=== PATIENT | male | born 1950 | race Caucasian/White ===

== ENCOUNTER 2019-03-02 07:57 | Emergency (ER) | payer SELFPAY ==
[2019-03-02 09:04] LABS: #Neutrophils 7.5 thou/uL (1.40-6.50); %Basophils 0.2 % (0.0-1.0); %Eosinophils 0.4 % (0.0-10.0); %Lymphocytes 10.2 % (21.0-51.0); %Monocytes 10.3 % (0.0-10.0); %Neutrophils 78.9 % (42.0-75.0); Hemoglobin 13.1 g/dL (14.0-18.0); Mean Corpuscular HGB CONC 33.1 g/dL (32.0-36.0); Mean Corpuscular Hemoglobin 31.4 pg (27.0-31.0); Mean Platelet Volume 7.4 fL (7.4-10.4); Platelet Count 167 thou/uL (130-400); RBC Distribution Width 12.9 % (11.5-14.5); Red Blood Cell (RBC) Count 4.18 mill/uL (4.70-6.10); White Blood Cell (WBC) Count 9.5 thou/uL (4.8-10.8)
--- NOTE | 2019-03-02 09:15 | RAD ---
FOUR VIEWS RIGHT KNEE: HISTORY: Cellulitis. Pain and swelling. FINDINGS: No joint effusion. Mild degenerative change of the patellofemoral compartment and lateral compartmen t. Moderate degenerative change of the medial compartment with loss of joint space height and osteop hyte formation. No destructive changes of the osseous structures. No fractures or malalignment. No significant soft tissue swelling. IMPRESSION: 1. No radiographic evidence of soft tissue swelling. 2. Tricompartmental degenerative change as described above. No joint effusion. POS: OFF
[2019-03-02 09:31] LABS: ALT (SGPT) 25 U/L (8-55); AST (SGOT) 20 U/L (5-34); Albumin 4.1 g/dL (3.4-4.8); Alkaline Phosphatase 58 U/L (40-150); Anion Gap 11 mmol/L (10-20); BUN (Urea Nitrogen) 11 mg/dL (8.4-25.7); Bilirubin, Total 0.6 mg/dL (0.2-1.2); Calc. Creatinine Clearance 0 mL/min (70-130); Calcium 9.4 mg/dL (7.8-10.44); Carbon Dioxide 27 mmol/L (23-31); Chloride 102 mmol/L (98-107); Estimated GFR-MDRD 82; Globulin 2.6 g/dL (2.4-3.5); Glucose 170 mg/dL (80-115); Potassium 3.9 mmol/L (3.5-5.1); Protein, Total 6.7 g/dL (5.8-8.1); Sodium 136 mmol/L (136-145)
[2019-03-02] MEDS ORDERED: Triple Antibiotic Oint 1 GM Packet ONE (10:10)
[2019-03-02] MEDS ORDERED: cefTRIAXone\\ROCEPHIN 2 GM VIAL ONE (10:10)
[2019-03-02] MEDS ORDERED: Sodium Chloride 0.9% 100 ML ONE (10:10)
[2019-03-02] MEDS ORDERED: Vancomycin HCl 1.5 GM in Sodium Chloride 0.9% 250 ML 300 ML IVPB SCH (11:30)
== END 2019-03-02 13:45 | disposition home or self-care (01) ==
LOC: ERS 07:57
DX: L03.115 Cellulitis of right lower limb (principal); E11.9 Type 2 diabetes mellitus without complications; E78.5 Hyperlipidemia, unspecified; I10 Essential (primary) hypertension; Z79.899 Other long term (current) drug therapy
CPT/HCPCS: 36415; 80053; 83605; 85025; 87040; 96365; 96366; 96367; J0696; J3370; J3490; J7050

== ENCOUNTER 2020-10-26 15:58 | Outpatient (CLI) | payer OTHER | END 2020-10-26 15:59 | disposition home or self-care (01) | LOC: BICRAD 15:58 | PROVIDERS: ATTEND Podiatrist | DX: M25.572 Pain in left ankle and joints of left foot (principal) ==

== ENCOUNTER 2022-06-15 08:28 | Emergency (ER) | payer SELFPAY ==
[2022-06-15 09:09] LABS: #Eosinphils 0.1 thou/uL (0.0-0.7); #Lymphocytes 1.3 thou/uL (1.20-3.40); #Monocytes 0.7 thou/uL (0.11-0.59); %Basophils 0.3 % (0.0-1.0); %Eosinophils 1.5 % (0.0-10.0); %Lymphocytes 21.7 % (21.0-51.0); %Monocytes 10.7 % (0.0-10.0); %Neutrophils 65.8 % (42.0-75.0); Hemoglobin 13.8 g/dL (14.0-18.0); Mean Corpuscular HGB CONC 33.6 g/dL (32.0-36.0); Mean Corpuscular Hemoglobin 32.5 pg (27.0-31.0); Mean Corpuscular Volume 96.8 fl (78.0-98.0); Mean Platelet Volume 7.3 fL (7.4-10.4); Platelet Count 216 10x3/uL (130-400); RBC Distribution Width 12.3 % (11.5-14.5); Red Blood Cell (RBC) Count 4.24 mill/uL (4.70-6.10); White Blood Cell (WBC) Count 6.1 10x3/uL (4.8-10.8)
[2022-06-15 09:26] LABS: ALT (SGPT) 24 U/L (8-55); AST (SGOT) 22 U/L (5-34); Albumin 4.5 g/dL (3.4-4.8); Alkaline Phosphatase 54 U/L (40-110); Anion Gap 13 mmol/L (10-20); BUN (Urea Nitrogen) 10 mg/dL (8.4-25.7); Calc. Creatinine Clearance 0 mL/min (70-130); Carbon Dioxide 24 mmol/L (23-31); Chloride 104 mmol/L (98-107); Estimated GFR 95; Glucose 164 mg/dL (80-115); Potassium 4.3 mmol/L (3.5-5.1); Protein, Total 6.5 g/dL (5.8-8.1); Sodium 137 mmol/L (136-145)
[2022-06-15] MEDS ORDERED: traMADol HCl 50 MG TAB ONE (11:16)
[2022-06-15] MEDS ORDERED: Aspirin Chewable 81 MG TAB ONE ×2 (11:17→11:19)
[2022-06-15] MEDS ORDERED: Iopamidol-370 76% 500 ML 1 ML ONE (11:37)
== END 2022-06-15 11:46 | disposition home or self-care (01) ==
LOC: ERS 08:28
DX: M79.661 Pain in right lower leg (principal); I51.7 Cardiomegaly; E11.9 Type 2 diabetes mellitus without complications; E78.00 Pure hypercholesterolemia, unspecified; I10 Essential (primary) hypertension
CPT/HCPCS: 36415; 71045; 71275; 80053; 83880; 84484; 85025; 93005; Q9967

== ENCOUNTER 2023-03-30 11:55 | Inpatient (IN) | payer SELFPAY ==
[2023-03-30 13:10] LABS: #Monocytes 0.7 thou/uL (0.11-0.59); #Neutrophils 5.3 thou/uL (1.40-6.50); %Basophils 0.3 % (0.0-1.0); %Eosinophils 0.5 % (0.0-10.0); %Lymphocytes 20.2 % (21.0-51.0); %Monocytes 9.7 % (0.0-10.0); %Neutrophils 68.9 % (42.0-75.0); Hematocrit 41.3 % (42.0-52.0); Hemoglobin 13.6 g/dL (14.0-18.0); Mean Corpuscular HGB CONC 32.9 g/dL (32.0-36.0); Mean Corpuscular Hemoglobin 31.6 pg (27.0-31.0); Mean Corpuscular Volume 95.8 fl (78.0-98.0); Mean Platelet Volume 9.5 fL (7.4-10.4); Platelet Count 222 10x3/uL (130-400); RBC Distribution Width 13.2 % (11.5-14.5); Red Blood Cell (RBC) Count 4.31 mill/uL (4.70-6.10); White Blood Cell (WBC) Count 7.6 10x3/uL (4.8-10.8)
[2023-03-30] MEDS ORDERED: dilTIAZem 25 MG/5 ML VIAL ONE (13:22)
[2023-03-30 13:37] LABS: Troponin I Less than 0.010 ng/mL (< 0.028)
[2023-03-30 13:38] LABS: ALT (SGPT) 18 U/L (8-55); AST (SGOT) 14 U/L (5-34); Albumin 4.6 g/dL (3.4-4.8); Alkaline Phosphatase 51 U/L (40-110); Anion Gap 14 mmol/L (10-20); BUN (Urea Nitrogen) 9 mg/dL (8.4-25.7); Bilirubin, Total 0.6 mg/dL (0.2-1.2); Calc. Creatinine Clearance 0 mL/min (70-130); Calcium 9.8 mg/dL (7.8-10.44); Carbon Dioxide 23 mmol/L (23-31); Chloride 105 mmol/L (98-107); Estimated GFR 95; Globulin 1.9 g/dL (2.4-3.5); Glucose 134 mg/dL (80-115); Potassium 3.8 mmol/L (3.5-5.1); Protein, Total 6.5 g/dL (5.8-8.1); Sodium 138 mmol/L (136-145)
[2023-03-30] MEDS ORDERED: dilTIAZem 125 MG/25 ML SDV ONE (13:58)
[2023-03-30] MEDS ORDERED: Acetaminophen 325 MG TAB PO PRN (14:32)
[2023-03-30] MEDS ORDERED: Dextrose 5% in Water 1,000 ML IV PRN (14:32)
[2023-03-30] MEDS ORDERED: Glucagon 1 MG/ML KIT IM PRN (14:32)
[2023-03-30] MEDS ORDERED: Insulin Regular 300 UNITS/3 ML VIAL SC PRN (14:32)
[2023-03-30] MEDS ORDERED: Ondansetron ODT 4 MG TAB PO PRN (14:32)
[2023-03-30] MEDS ORDERED: Dextrose 50% Abboject 50 ML SYRINGE SLOW IVP PRN (14:32)
[2023-03-30] MEDS ORDERED: dilTIAZem 125 MG in Sodium Chloride 0.9% 100 ML IVPB SCH (14:45)
[2023-03-30 15:51] LABS: Magnesium 1.8 mg/dL (1.6-2.6)
[2023-03-30 17:15] VITALS: BMI 33.5
[2023-03-30] MEDS: metFORMIN 500 MG TAB PO SCH (17:32)
[2023-03-30 18:43] LABS: Troponin I Less than 0.010 ng/mL (< 0.028)
[2023-03-30] MEDS: Atorvastatin Calcium 20 MG TAB PO SCH (20:43)
[2023-03-30] MEDS: Famotidine 20 MG TAB PO SCH (20:43)
[2023-03-30] MEDS: Melatonin 3 MG TAB PO PRN (20:43)
[2023-03-30 21:22] LABS: Troponin I 0.011 ng/mL (< 0.028)
[2023-03-30] MEDS: dilTIAZem 125 MG, Admixture Fee 1 EACH in Sodium Chloride 0.9% 100 ML IVPB SCH (23:24)
[2023-03-31] MEDS: Enoxaparin 120 MG/0.8 ML SYRINGE SC SCH ×2 (05:21→17:49)
[2023-03-31] MEDS: metFORMIN 500 MG TAB PO SCH ×2 (07:56→17:49)
[2023-03-31] MEDS: Famotidine 20 MG TAB PO SCH ×2 (07:56→20:10)
[2023-03-31] MEDS ORDERED: Furosemide 40 MG/4 ML VIAL ONE (09:03)
[2023-03-31] MEDS ORDERED: Furosemide 20 MG/2 ML VIAL SLOW IVP SCH ×2 (09:15→09:30)
[2023-03-31 10:17] LABS: Troponin I Less than 0.010 ng/mL (< 0.028)
[2023-03-31] MEDS ORDERED: Digoxin 0.5 MG/2 ML AMP SLOW IVP SCH (11:30)
[2023-03-31] MEDS: Atorvastatin Calcium 20 MG TAB PO SCH (20:10)
[2023-03-31] MEDS: Melatonin 3 MG TAB PO PRN (20:10)
[2023-04-01 04:14] LABS: #Eosinphils 0.1 thou/uL (0.0-0.7); #Monocytes 0.8 thou/uL (0.11-0.59); #Neutrophils 5.2 thou/uL (1.40-6.50); %Basophils 0.5 % (0.0-1.0); %Eosinophils 1.1 % (0.0-10.0); %Lymphocytes 17.2 % (21.0-51.0); %Monocytes 10.4 % (0.0-10.0); %Neutrophils 70.5 % (42.0-75.0); Hematocrit 42.1 % (42.0-52.0); Hemoglobin 13.8 g/dL (14.0-18.0); Mean Corpuscular HGB CONC 32.8 g/dL (32.0-36.0); Mean Corpuscular Hemoglobin 31.5 pg (27.0-31.0); Mean Corpuscular Volume 96.1 fl (78.0-98.0); Mean Platelet Volume 10.1 fL (7.4-10.4); Platelet Count 253 10x3/uL (130-400); RBC Distribution Width 13.2 % (11.5-14.5); Red Blood Cell (RBC) Count 4.38 mill/uL (4.70-6.10); White Blood Cell (WBC) Count 7.4 10x3/uL (4.8-10.8)
[2023-04-01 04:37] LABS: Anion Gap 16 mmol/L (10-20); BUN (Urea Nitrogen) 12 mg/dL (8.4-25.7); Calc. Creatinine Clearance 111 mL/min (70-130); Calcium 9.6 mg/dL (7.8-10.44); Carbon Dioxide 27 mmol/L (23-31); Chloride 101 mmol/L (98-107); Estimated GFR 88; Glucose 135 mg/dL (80-115); Potassium 3.8 mmol/L (3.5-5.1); Sodium 140 mmol/L (136-145)
[2023-04-01] MEDS: Enoxaparin 120 MG/0.8 ML SYRINGE SC SCH ×2 (05:33→17:28)
[2023-04-01] MEDS: dilTIAZem 125 MG, Admixture Fee 1 EACH in Sodium Chloride 0.9% 100 ML IVPB SCH ×2 (05:34→14:42)
[2023-04-01] MEDS: metFORMIN 500 MG TAB PO SCH ×2 (10:23→17:28)
[2023-04-01] MEDS: Famotidine 20 MG TAB PO SCH ×2 (10:23→20:52)
[2023-04-01] MEDS: Melatonin 3 MG TAB PO PRN (20:52)
[2023-04-01] MEDS ORDERED: Atorvastatin Calcium 20 MG TAB PO SCH (21:00)
[2023-04-02] MEDS: dilTIAZem 125 MG, Admixture Fee 1 EACH in Sodium Chloride 0.9% 100 ML IVPB SCH ×2 (00:32→09:01)
[2023-04-02 03:48] LABS: #Eosinphils 0.1 thou/uL (0.0-0.7); #Monocytes 0.9 thou/uL (0.11-0.59); #Neutrophils 5.2 thou/uL (1.40-6.50); %Basophils 0.5 % (0.0-1.0); %Eosinophils 1.2 % (0.0-10.0); %Lymphocytes 19.4 % (21.0-51.0); %Monocytes 11.4 % (0.0-10.0); %Neutrophils 67.2 % (42.0-75.0); Hematocrit 40.8 % (42.0-52.0); Hemoglobin 13.1 g/dL (14.0-18.0); Mean Corpuscular HGB CONC 32.1 g/dL (32.0-36.0); Mean Corpuscular Hemoglobin 31.5 pg (27.0-31.0); Mean Corpuscular Volume 98.1 fl (78.0-98.0); Mean Platelet Volume 10.1 fL (7.4-10.4); Platelet Count 183 10x3/uL (130-400); RBC Distribution Width 13.3 % (11.5-14.5); Red Blood Cell (RBC) Count 4.16 mill/uL (4.70-6.10); White Blood Cell (WBC) Count 7.8 10x3/uL (4.8-10.8)
[2023-04-02 04:12] LABS: Anion Gap 16 mmol/L (10-20); BUN (Urea Nitrogen) 12 mg/dL (8.4-25.7); Calc. Creatinine Clearance 119 mL/min (70-130); Calcium 9.1 mg/dL (7.8-10.44); Carbon Dioxide 22 mmol/L (23-31); Chloride 105 mmol/L (98-107); Estimated GFR 93; Glucose 115 mg/dL (80-115); Potassium 3.6 mmol/L (3.5-5.1); Sodium 139 mmol/L (136-145)
[2023-04-02] MEDS ORDERED: FLU VACC QS2023(65UP)/MF59C/PF 60 MCG/0.5 ML SYRINGE IM ONE (09:00)
[2023-04-02] MEDS: Famotidine 20 MG TAB PO SCH (09:01)
[2023-04-02] MEDS: metFORMIN 500 MG TAB PO SCH ×2 (09:01→18:31)
[2023-04-02] MEDS ORDERED: Heparin 10,000 UNITS/ 10 ML VIAL ONE (13:26)
[2023-04-02] MEDS ORDERED: Isoproterenol 0.2 MG/1 ML AMP ONE (15:24)
[2023-04-02] MEDS ORDERED: fentaNYL PF 100 MCG/2 ML SYRINGE ONE (15:26)
[2023-04-02] MEDS ORDERED: PROPOFOL 200 MG/20 ML VIAL ONE (15:37)
[2023-04-02] MEDS ORDERED: Ondansetron PF 4 MG/2 ML Vial ONE ×2 (15:37→16:59)
[2023-04-02] MEDS ORDERED: Dexamethasone 20 MG/5 ML VIAL ONE (15:37)
[2023-04-02] MEDS ORDERED: PHENYLEPHRINE-NS 100 MCG/ML 10 ML SYRINGE ONE (15:37)
[2023-04-02] MEDS ORDERED: DOPamine 400 MG/D5W 250 ML 250 ML ONE (15:53)
[2023-04-02] MEDS ORDERED: PROPOFOL 20 ML ONE (16:01)
[2023-04-02] MEDS ORDERED: Phenylephrine 10 MG/ML VIAL ONE (16:26)
[2023-04-02] MEDS ORDERED: Promethazine HCl 25 MG/ML VIAL IM PRN (17:21)
[2023-04-02] MEDS ORDERED: Ondansetron HCl/PF 4 MG/2 ML Vial IVP PRN (17:21)
[2023-04-02] MEDS ORDERED: fentaNYL 50 mcg/mL 1 mL Vial ONE (17:27)
[2023-04-02 20:45] VITALS: BP 125/82; TEMP 98.4
== END 2023-04-02 21:45 | disposition home or self-care (01) | DRG 274 ==
LOC: ERS 11:55 → SUATTDRO 11:55 → 2NO 14:22
PROVIDERS: ADMIT Family Medicine; ATTEND Physician Assistant
PROC: 02583ZZ Destruction of Conduction Mechanism, Percutaneous Approach (ICD-10-PCS; principal; 2023-04-02)
PROC: B24BZZ4 Ultrasonography of Heart with Aorta, Transesophageal (ICD-10-PCS; 2023-04-02)
PROC: 4A023FZ Measurement of Cardiac Rhythm, Percutaneous Approach (ICD-10-PCS; 2023-04-02)
PROC: 4A0234Z Measurement of Cardiac Electrical Activity, Percutaneous Approach (ICD-10-PCS; 2023-04-02)
PROC: 02K83ZZ Map Conduction Mechanism, Percutaneous Approach (ICD-10-PCS; 2023-04-02)
DX: I48.4 Atypical atrial flutter (principal); E11.9 Type 2 diabetes mellitus without complications; F10.90 Alcohol use, unspecified, uncomplicated; I11.9 Hypertensive heart disease without heart failure; G47.33 Obstructive sleep apnea (adult) (pediatric); Z79.82 Long term (current) use of aspirin; Z79.899 Other long term (current) drug therapy; Z98.890 Other specified postprocedural states; E78.00 Pure hypercholesterolemia, unspecified; Z87.01 Personal history of pneumonia (recurrent); Z79.84 Long term (current) use of oral hypoglycemic drugs
CPT/HCPCS: 36415; 36416; 71045; 80048; 80053; 83735; 83880; 84443; 84484; 85025; 85379; 93005; 93010; 93306; 93312; 93613; 93621; 93653; 96365; 96366; 96372; 96376; 97139; C1730; C1732; C1760; C1894; J1100; J1160; J1265; J1644; J1650; J1940; J2370; J2405; J2704; J3010; J3490

== ENCOUNTER 2023-06-06 05:15 | Inpatient (IN) | payer SELFPAY ==
[2023-06-06] MEDS ORDERED: dilTIAZem 125 MG/25 ML SDV ONE (05:24)
[2023-06-06 05:46] LABS: #Eosinphils 0.1 thou/uL (0.0-0.7); #Monocytes 0.9 thou/uL (0.11-0.59); #Neutrophils 4.3 thou/uL (1.40-6.50); %Basophils 0.6 % (0.0-1.0); %Eosinophils 1.8 % (0.0-10.0); %Lymphocytes 20.8 % (21.0-51.0); %Neutrophils 62.8 % (42.0-75.0); Hematocrit 40.1 % (42.0-52.0); Hemoglobin 13.3 g/dL (14.0-18.0); Mean Corpuscular HGB CONC 33.2 g/dL (32.0-36.0); Mean Corpuscular Hemoglobin 31.8 pg (27.0-31.0); Mean Corpuscular Volume 95.9 fl (78.0-98.0); Mean Platelet Volume 9.7 fL (7.4-10.4); Platelet Count 228 10x3/uL (130-400); RBC Distribution Width 13.9 % (11.5-14.5); Red Blood Cell (RBC) Count 4.18 mill/uL (4.70-6.10); White Blood Cell (WBC) Count 6.8 10x3/uL (4.8-10.8)
[2023-06-06 05:59] LABS: PTT 28.4 sec (22.9-36.1); Prothrombin Time 13.7 sec (12.0-14.7)
[2023-06-06] MEDS ORDERED: Aspirin Chewable 81 MG TAB ONE (06:01)
[2023-06-06 06:42] LABS: ALT (SGPT) 17 U/L (8-55); AST (SGOT) 20 U/L (5-34); Albumin 4.2 g/dL (3.4-4.8); Alkaline Phosphatase 58 U/L (40-110); Anion Gap 17 mmol/L (10-20); BUN (Urea Nitrogen) 18 mg/dL (8.4-25.7); Bilirubin, Total 0.3 mg/dL (0.2-1.2); Calc. Creatinine Clearance 0 mL/min (70-130); Calcium 8.9 mg/dL (7.8-10.44); Carbon Dioxide 20 mmol/L (23-31); Chloride 107 mmol/L (98-107); Estimated GFR 94; Globulin 2.5 g/dL (2.4-3.5); Glucose 193 mg/dL (80-115); Magnesium 1.8 mg/dL (1.6-2.6); Potassium 4.1 mmol/L (3.5-5.1); Protein, Total 6.7 g/dL (5.8-8.1); Sodium 140 mmol/L (136-145)
[2023-06-06 07:34] LABS: Troponin I Less than 0.010 ng/mL (< 0.028)
[2023-06-06 08:01] LABS: Bacteria/HPF None Seen HPF (None Seen); Bilirubin Negative (Negative); Blood, Urine Trace (Negative); CAUTI Indications for Culture Pelvic or flank pain; Clarity Clear (Clear); Glucose, Urine (Dipstick) Normal (Negative); Ketone, Urine Negative (Negative); Leukocyte Negative Leu/uL (Negative); Nitrite Negative (Negative); Protein, Urine (Dipstick) 100 mg/dL (Neg-Trace); RBC/HPF 0-3 HPF (0-3); Specific Gravity, Urine 1.033 (1.002-1.036); Squamous Epithelial None Seen HPF (0-3); Urine Culture Reflex No No; WBC/HPF 0-3 HPF (0-3)
[2023-06-06] MEDS ORDERED: Dextrose 5% in Water 1,000 ML IV PRN (08:13)
[2023-06-06] MEDS ORDERED: Glucagon 1 MG/ML KIT IM PRN (08:13)
[2023-06-06] MEDS ORDERED: Dextrose 50% Abboject 50 ML SYRINGE SLOW IVP PRN (08:13)
[2023-06-06] MEDS ORDERED: HYDROcodone/Acetaminophen 5/325 mg Tablet PO PRN (08:14)
[2023-06-06] MEDS ORDERED: Acetaminophen 325 MG TAB PO PRN (08:14)
[2023-06-06] MEDS ORDERED: HumaLOG 300 UNITS/3 ML VIAL SC PRN (08:14)
[2023-06-06] MEDS ORDERED: dilTIAZem 125 MG in Sodium Chloride 0.9% 100 ML IVPB SCH (08:30)
[2023-06-06] MEDS ORDERED: dilTIAZem 125 MG, Admixture Fee 1 EACH in Sodium Chloride 0.9% 100 ML IVPB SCH (08:45)
[2023-06-06] MEDS ORDERED: Lisinopril 20 MG TAB PO SCH (09:00)
[2023-06-06] MEDS ORDERED: Apixaban 5 MG TAB PO SCH (09:00)
[2023-06-06] MEDS ORDERED: Amlodipine 10 MG TAB PO SCH (09:00)
[2023-06-06 09:04] LABS: Magnesium 1.8 mg/dL (1.6-2.6)
[2023-06-06 09:29] LABS: Troponin I Less than 0.010 ng/mL (< 0.028)
[2023-06-06 11:08] VITALS: BMI 32.5
[2023-06-06 11:19] VITALS: BP 148/78; TEMP 98.5
[2023-06-06 11:43] LABS: Troponin I 0.016 ng/mL (< 0.028)
[2023-06-06] MEDS ORDERED: dilTIAZem CD 120 MG CAP PO SCH (12:15)
[2023-06-06] MEDS ORDERED: Atorvastatin Calcium 20 MG TAB PO SCH (21:00)
[2023-06-06] MEDS ORDERED: Aspirin 81 mg Enteric Coated Tablet PO SCH (21:00)
[2023-06-07] MEDS ORDERED: dilTIAZem CD 120 MG CAP PO SCH (09:00)
== END 2023-06-06 14:30 | disposition home or self-care (01) | DRG 310 ==
LOC: ERS 05:15 → SUATTDRO 05:15 → 2NO 07:49
PROVIDERS: ADMIT Internal Medicine; ATTEND Internal Medicine
DX: I48.0 Paroxysmal atrial fibrillation (principal); E11.65 Type 2 diabetes mellitus with hyperglycemia; I10 Essential (primary) hypertension; E78.5 Hyperlipidemia, unspecified; Z79.82 Long term (current) use of aspirin; Z98.890 Other specified postprocedural states; Z79.84 Long term (current) use of oral hypoglycemic drugs; Z79.899 Other long term (current) drug therapy
CPT/HCPCS: 36415; 71045; 80053; 81001; 83735; 83880; 84443; 84484; 85025; 85610; 85730; 93005

== ENCOUNTER 2025-02-20 08:33 | Inpatient (IN) | payer MEDICARE ==
[2025-02-20 08:56] LABS: #Basophils 0.04 10x3/uL (0.0-0.2); #Eosinophils 0.05 10x3/uL (0.0-0.7); #Monocytes 0.53 10x3/uL (0.11-0.59); #Neutrophils 4.02 10x3/uL (1.40-6.50); %Basophils 0.7 % (0.0-1.0); %Eosinophils 0.8 % (0.0-10.0); %Lymphocytes 21.3 % (21.0-51.0); %Monocytes 9.0 % (0.0-10.0); %Neutrophils 67.9 % (42.0-75.0); Hematocrit 39.2 % (42.0-52.0); Hemoglobin 12.8 g/dL (14.0-18.0); Mean Corpuscular Hemoglobin 30.4 pg (27.0-31.0); Mean Corpuscular Volume 93.1 fL (78.0-98.0); Platelet Count 208 10x3/uL (130-400); Red Blood Cell (RBC) Count 4.21 mill/uL (4.70-6.10); White Blood Cell (WBC) Count 5.92 10x3/uL (4.8-10.8)
[2025-02-20 09:12] LABS: ALT (SGPT) 18 U/L (Less than 45); AST (SGOT) 18 U/L (11-34); Albumin 4.2 g/dL (3.1-4.5); Alkaline Phosphatase 54 U/L (40-110); Anion Gap 13 mmol/L (10-20); BUN (Urea Nitrogen) 12 mg/dL (8.4-25.7); Bilirubin, Total 0.8 mg/dL (0.3-1.2); CRP, High Sensitivity at Bryan 0.02 mg/dL (< or = 0.5); Calc. Creatinine Clearance 0 mL/min (70-130); Calcium 9.1 mg/dL (7.8-10.44); Carbon Dioxide 24 mmol/L (23-31); Chloride 103 mmol/L (98-107); Globulin 2.1 g/dL (2.4-3.5); Glucose 123 mg/dL (83-110); Lipase 31 U/L (8-78); Magnesium 1.9 mg/dL (1.6-2.6); Potassium 3.8 mmol/L (3.5-5.1); Sodium 136 mmol/L (136-145)
[2025-02-20 09:36] LABS: INR-International Normal Ratio 1.0; Prothrombin Time 13.2 sec (12.0-14.7)
[2025-02-20 09:36] LABS: Bacteria/HPF None Seen HPF (None Seen); CAUTI Indications for Culture Dysuria,urgency,freq; Glucose, Urine (Dipstick) Normal (Negative); Leukocyte Negative Leu/uL (Negative); Protein, Urine (Dipstick) 50 mg/dL (Neg-Trace); RBC/HPF 0-3 HPF (0-3); Specific Gravity, Urine 1.019 (1.002-1.036); WBC/HPF 0-3 HPF (0-3)
[2025-02-20 09:37] LABS: PTT 28.2 sec (22.9-36.1)
[2025-02-20 09:49] LABS: Urine Culture Reflex No No
[2025-02-20] MEDS ORDERED: Ondansetron PF 4 MG/2 ML Vial ONE (10:03)
[2025-02-20] MEDS ORDERED: Aspirin Chewable 81 MG TAB ONE (11:27)
[2025-02-20] MEDS ORDERED: Senokot S 8.6-50 MG TAB PO PRN (11:32)
[2025-02-20] MEDS ORDERED: Melatonin 3 MG TAB PO PRN (11:32)
[2025-02-20] MEDS ORDERED: Glucagon 1 MG/ML KIT IM PRN (11:35)
[2025-02-20] MEDS ORDERED: Dextrose 50% Abboject 50 ML SYRINGE SLOW IVP PRN (11:35)
[2025-02-20] MEDS: Pantoprazole 40 MG DR.TAB PO SCH (17:20)
[2025-02-20] MEDS: dilTIAZem 30 MG TAB PO SCH (17:20)
[2025-02-20] MEDS: Glimepiride 2 MG TAB PO SCH (21:21)
[2025-02-20] MEDS: Aspirin 81 mg Enteric Coated Tablet PO SCH (21:21)
[2025-02-21 04:27] LABS: #Basophils 0.03 10x3/uL (0.0-0.2); #Eosinophils 0.05 10x3/uL (0.0-0.7); #Monocytes 0.63 10x3/uL (0.11-0.59); #Neutrophils 4.03 10x3/uL (1.40-6.50); %Basophils 0.5 % (0.0-1.0); %Eosinophils 0.9 % (0.0-10.0); %Lymphocytes 18.2 % (21.0-51.0); %Monocytes 10.8 % (0.0-10.0); %Neutrophils 69.4 % (42.0-75.0); Hematocrit 34.9 % (42.0-52.0); Hemoglobin 11.4 g/dL (14.0-18.0); Mean Corpuscular Hemoglobin 31.0 pg (27.0-31.0); Mean Corpuscular Volume 94.8 fL (78.0-98.0); Platelet Count 194 10x3/uL (130-400); Red Blood Cell (RBC) Count 3.68 mill/uL (4.70-6.10); White Blood Cell (WBC) Count 5.81 10x3/uL (4.8-10.8)
[2025-02-21 05:01] LABS: Anion Gap 12 mmol/L (10-20); BUN (Urea Nitrogen) 12 mg/dL (8.4-25.7); Calc. Creatinine Clearance 0 mL/min (70-130); Calcium 8.9 mg/dL (7.8-10.44); Carbon Dioxide 26 mmol/L (23-31); Chloride 103 mmol/L (98-107); Glucose 104 mg/dL (83-110); Potassium 3.8 mmol/L (3.5-5.1); Sodium 137 mmol/L (136-145)
[2025-02-21] MEDS ORDERED: Apixaban 5 MG TAB PO SCH (09:00)
[2025-02-21] MEDS ORDERED: Pantoprazole 40 MG DR.TAB PO SCH (09:00)
[2025-02-21] MEDS: Lisinopril 20 MG TAB PO SCH (12:46)
[2025-02-22 05:13] LABS: Anion Gap 12 mmol/L (10-20); BUN (Urea Nitrogen) 11 mg/dL (8.4-25.7); Calc. Creatinine Clearance 88 mL/min (70-130); Calcium 9.0 mg/dL (7.8-10.44); Carbon Dioxide 26 mmol/L (23-31); Chloride 105 mmol/L (98-107); Glucose 89 mg/dL (83-110); Potassium 3.6 mmol/L (3.5-5.1); Sodium 139 mmol/L (136-145)
[2025-02-22 05:51] LABS: #Basophils Less than 0.03 10x3/uL (0.0-0.2); #Eosinophils 0.10 10x3/uL (0.0-0.7); #Monocytes 0.76 10x3/uL (0.11-0.59); #Neutrophils 3.64 10x3/uL (1.40-6.50); %Basophils 0.3 % (0.0-1.0); %Eosinophils 1.7 % (0.0-10.0); %Lymphocytes 22.0 % (21.0-51.0); %Monocytes 13.1 % (0.0-10.0); %Neutrophils 62.7 % (42.0-75.0); Hematocrit 36.0 % (42.0-52.0); Hemoglobin 11.8 g/dL (14.0-18.0); Mean Corpuscular Hemoglobin 30.7 pg (27.0-31.0); Mean Corpuscular Volume 93.8 fL (78.0-98.0); Platelet Count 219 10x3/uL (130-400); Red Blood Cell (RBC) Count 3.84 mill/uL (4.70-6.10); White Blood Cell (WBC) Count 5.81 10x3/uL (4.8-10.8)
[2025-02-22] MEDS: PNEUMOC 20-VAL CONJ-DIP CRM/PF 0.5 ML SYRINGE IM ONE (07:36)
[2025-02-22 07:37] VITALS: TEMP 98.1
[2025-02-22] MEDS ORDERED: Nitroglycerin 0.4 MG TAB (25 Tab Bottle) SL PRN (08:16)
[2025-02-22] MEDS ORDERED: Iopamidol 370 76% 100 ML VIAL ONE (09:42)
[2025-02-22] MEDS: Senokot 8.6 MG TAB PO SCH (11:26)
[2025-02-22] MEDS ORDERED: Lidocaine 1% (PF) 30 ML VIAL ONE (11:52)
[2025-02-22] MEDS ORDERED: Nitroglycerin 50 MG/250 ML BOT 250 ML ONE (11:52)
[2025-02-22] MEDS ORDERED: Heparin 10,000 UNITS/ 10 ML VIAL ONE (11:52)
[2025-02-22 15:12] VITALS: BP 133/65
[2025-02-22] MEDS ORDERED: Pantoprazole 40 MG DR.TAB PO SCH (21:00)
== END 2025-02-22 18:15 | disposition home or self-care (01) | DRG 287 ==
LOC: ERS 08:33 → 2NO 11:33
PROVIDERS: ADMIT Family Medicine; ATTEND Internal Medicine
PROC: B2111ZZ Fluoroscopy of Multiple Coronary Arteries using Low Osmolar Contrast (ICD-10-PCS; principal; 2025-02-22)
PROC: 4A023N7 Measurement of Cardiac Sampling and Pressure, Left Heart, Percutaneous Approach (ICD-10-PCS; 2025-02-22)
DX: R07.9 Chest pain, unspecified (principal); I48.92 Unspecified atrial flutter; E11.9 Type 2 diabetes mellitus without complications; I49.3 Ventricular premature depolarization; I10 Essential (primary) hypertension; F10.90 Alcohol use, unspecified, uncomplicated; E78.5 Hyperlipidemia, unspecified; Z98.890 Other specified postprocedural states; Z79.899 Other long term (current) drug therapy; Z79.84 Long term (current) use of oral hypoglycemic drugs
CPT/HCPCS: 36415; 36416; 71045; 78452; 80048; 80053; 81001; 83690; 83735; 83880; 84443; 84484; 85025; 85610; 85730; 86141; 93005; 93017; 93306; 93458; 96374; 96375; 99152; 99153; A9502; C1760; C1769; C1887; C1894; J1644; J2250; J2270; J2405; J2785; J3010